=== PATIENT | female | born 1965 | race Caucasian/White ===

== ENCOUNTER 2021-01-21 07:54 | Emergency (ER) | payer OTHER ==
[~2021-01-21] VITALS: Ht 165.1 cm; Wt 72.0 kg
[2021-01-21 08:08] VITALS: BP 180/105
== END 2021-01-21 08:57 ==
LOC: EMS 07:54
DX: Z11.1 Encounter for screening for respiratory tuberculosis (principal); Z90.89 Acquired absence of other organs
CPT/HCPCS: 71045; 99283